=== PATIENT | male | born 2005 | race Caucasian/White ===

== ENCOUNTER 2023-11-10 23:04 | Observation (INO) ==
[2023-11-11 00:01] LABS: ABS Basophils 0.1 10^3/uL (0.0-0.1); ABS Lymphocytes 2.2 10^3/uL (1.0-4.8); ABS Monocytes 1.3 10^3/uL (0.0-1.1); ABS Neutrophils 13.8 10^3/uL (1.5-7.6); Eosinophil % 0.3 %; Hematocrit 43.8 % (38-53); Hemoglobin 14.5 g/dL (13.2-16.3); Lymphocyte % 12.5 %; Mean Corpuscular Hemoglobin 27.1 pg (27-33); Mean Corpuscular Hgb Conc 33.1 g/dL (31-36); Mean Corpuscular Volume 81.9 fL (80-97); Mean Platelet Volume 8.1 fL (7.5-11.2); Platelet Count 309 10^3/uL (150-450); Red Blood Count 5.34 10^6/uL (4.06-5.63); Red Cell Distribution Width 15.5 % (12-17); White Blood Count 17.4 10^3/uL (3.6-10.2)
[2023-11-11] MEDS: Ondansetron 4 mg VIAL 2 MG/ML 2 ml VIAL IV ONE ×2 (00:21→08:01)
[2023-11-11] MEDS: Lactated Ringers 1000 ml BAG 1,000 ML IV ONE ×2 (00:22→06:54)
[2023-11-11 00:36] LABS: Albumin/Globulin Ratio 1.6 (1-3); C Reactive Protein 31.09 mg/L (<8.01); Calcium 9.8 mg/dL (8.6-10.3); Creatinine, Serum 0.95 mg/dL (0.67-1.17); Globulin 2.5 g/dL (2-4); Magnesium 1.8 mg/dL (1.9-2.7); Potassium 4.2 mmol/L (3.5-5.0); Total Bilirubin 0.4 mg/dL (0.2-1.0); Total Protein 6.5 g/dL (6.4-8.9); eGFR CKD-EPI 117.5 (>60)
[2023-11-11] MEDS: Iohexol 300 (CONTRAST) 10 ML SDV IV ONE (04:18)
[2023-11-11] MEDS: NS 0.9% 1000 ml BAG 1,000 ML IV ONE (04:41)
[2023-11-11] MEDS: Morphine 2 MG/ML SYRINGE IV ONE (05:34)
[2023-11-11] MEDS ORDERED: Ondansetron 4 mg VIAL 2 MG/ML 2 ml VIAL ONE (07:57)
[2023-11-11] MEDS: Morphine 2 MG/ML SYRINGE IV PRN (08:01)
[2023-11-11] MEDS ORDERED: Benzocaine/Menthol Pain Spray - BTL 78 GM TOPICAL PRN (08:11)
[2023-11-11] MEDS: Phenol 1.4% Throat Spray BTL MT PRN (09:25)
[2023-11-11] MEDS: NS 0.9% w/ 20 Meq KCL 1000 ml 1,000 ML IV SCH (12:37)
[2023-11-11] MEDS: Dexamethasone IV 4 MG/ML VIAL 1 ml VIAL IV SLOW PU ONE (12:48)
[2023-11-11] MEDS ORDERED: Acetaminophen IV 1 GM/100ML 1,000 MG/100 ML BAG IV PRN (20:47)
[2023-11-12] MEDS: NS 0.9% w/ 20 Meq KCL 1000 ml 1,000 ML IV SCH (00:05)
[2023-11-12 05:41] LABS: ABS Lymphocytes 1.5 10^3/uL (1.0-4.8); ABS Monocytes 0.7 10^3/uL (0.0-1.1); ABS Neutrophils 6.4 10^3/uL (1.5-7.6); ABS Nucleated RBC 0.01 10^3/ul; Hemoglobin 11.5 g/dL (13.2-16.3); Mean Corpuscular Hemoglobin 27.1 pg (27-33); Mean Corpuscular Hgb Conc 32.9 g/dL (31-36); Mean Corpuscular Volume 82.3 fL (80-97); Mean Platelet Volume 8.6 fL (7.5-11.2); Nucleated Red Blood Cells % 0.1 %/100WBC (0.0-0.8); Platelet Count 230 10^3/uL (150-450); Red Blood Count 4.25 10^6/uL (4.06-5.63); Red Cell Distribution Width 15.5 % (12-17); White Blood Count 8.6 10^3/uL (3.6-10.2)
[2023-11-12 06:05] LABS: Creatinine, Serum 0.69 mg/dL (0.67-1.17); Potassium 4.5 mmol/L (3.5-5.0); eGFR CKD-EPI 135.9 (>60)
[2023-11-12 10:13] VITALS: BP 119/62
== END 2023-11-12 11:35 | disposition home or self-care (01) ==
LOC: EDHOLD 23:04 → ED 23:04 → SSU 11-11 15:52
PROVIDERS: ADMIT Internal Medicine; ATTEND Internal Medicine

== ENCOUNTER 2024-03-09 01:24 | Observation (INO) ==
[2024-03-09] MEDS: Lactated Ringers 1000 ml BAG 1,000 ML IV ONE ×3 (01:52→10:35)
[2024-03-09] MEDS: Ondansetron 4 mg VIAL 2 MG/ML 2 ml VIAL IV ONE (01:55)
[2024-03-09 02:02] LABS: ABS Basophils 0.1 10^3/uL (0.0-0.1); ABS Lymphocytes 1.6 10^3/uL (1.0-4.8); ABS Monocytes 0.8 10^3/uL (0.0-1.1); ABS Nucleated RBC 0.01 10^3/ul; Eosinophil % 0.3 %; Hematocrit 47.2 % (38-53); Hemoglobin 15.5 g/dL (13.2-16.3); Lymphocyte % 11.7 %; Mean Corpuscular Hemoglobin 29.4 pg (27-33); Mean Corpuscular Hgb Conc 32.9 g/dL (31-36); Mean Corpuscular Volume 89.4 fL (80-97); Mean Platelet Volume 9.2 fL (7.5-11.2); Platelet Count 204 10^3/uL (150-450); Red Blood Count 5.28 10^6/uL (4.06-5.63); White Blood Count 13.6 10^3/uL (3.6-10.2)
[2024-03-09 02:44] LABS: Urine Appearance Clear; Urine Bilirubin Negative (Negative); Urine Blood Negative (Negative); Urine Color Light-Yellow; Urine Glucose Negative (Negative); Urine Ketones 3+ (Negative); Urine Nitrite Negative (Negative); Urine Protein Trace (Negative); Urine Specific Gravity 1.025 (1.002-1.030); Urine Urobilinogen Negative (Negative); Urine pH 5.5 (5.0-8.0)
[2024-03-09 02:47] LABS: Albumin 5.2 g/dL (3.2-5.2); Albumin/Globulin Ratio 1.9 (1-3); C Reactive Protein 1.49 mg/L (<8.01); Calcium 10.7 mg/dL (8.6-10.3); Creatinine, Serum 1.04 mg/dL (0.67-1.17); Globulin 2.7 g/dL (2-4); Magnesium 2.1 mg/dL (1.9-2.7); Potassium 4.4 mmol/L (3.5-5.0); Total Bilirubin 0.8 mg/dL (0.2-1.0); Total Protein 7.9 g/dL (6.4-8.9); eGFR CKD-EPI 105.4 (>60)
[2024-03-09] MEDS: Morphine 4 MG/ML VIAL (1 ml) IV ONE (08:00)
[2024-03-09] MEDS: Acetaminophen IV 1 GM/100ML 1,000 MG/100 ML BAG IV ONE (08:00)
[2024-03-09] MEDS: Iohexol 300 (CONTRAST) 10 ML SDV IV ONE (08:44)
[2024-03-09] MEDS ORDERED: Morphine 2 MG/ML SYRINGE IV PRN (14:02)
[2024-03-09] MEDS: Ondansetron ODT 4 mg TAB 4 MG TAB SL PRN (14:14)
[2024-03-09] MEDS: Lactated Ringers 1000 ml BAG 1,000 ML IV SCH (14:26)
[2024-03-09] MEDS: Metoclopramide 5 MG/ML VIAL (10 mg) IV SLOW PU ONE (15:16)
[2024-03-10 10:23] VITALS: BP 99/50
== END 2024-03-10 10:59 | disposition home or self-care (01) ==
LOC: EDHOLD 01:24 → ED 01:24 → SUATTDRO 12:33 → MEDTELE 19:51
PROVIDERS: ADMIT Hospitalist; ATTEND Student in an Organized Health Care Education/Training Program